=== PATIENT | male | born 1950 | race Caucasian/White ===

== ENCOUNTER → 2017-10-30 | Outpatient (CLI) | payer MEDICARE, OTHER ==
[~2017-10-30] MED LIST: ASPI81CH; ASPI81CH PO; Amox Tr-K Clv1 EAC2 PO; COQ10-VIT E 101 EACH PO; Cleocin HCl150 MG PO; DULO30; DULOXETINE HCL30 MG; FLAX SEED OIL1000 MG; Flagyl500 MG PO; MULVITMIND PO; Mobic15 MG PO; NEBI5; OXYACE7.5T PO; OXYC1TAB11; PROBIOTIC1 EAC1; PROM25 PO; Pantoprazole So40 MG PO; RXOXYACE PO; TAMS.4ER PO; TOCO1000; TRIHYD253A; Triamterene W/1 EACH; VITAMIN D-32000 UNI1 PO; ZOLP10; Zofran4 MG PO; Zolpidem Tartra10 MG
== END | disposition home or self-care (01) ==
LOC: EDSTATUS 10:32 → LAB SHORT 13:42 → PLD 13:42
DX: D22.5 Melanocytic nevi of trunk (principal)
CPT/HCPCS: 88305

== ENCOUNTER 2019-06-24 10:04 | Day surgery (SDC) | payer MEDICARE, OTHER ==
[2019-06-24 12:31] LABS: Body Fluid Crystals NEG (NEGATIVE)
[2019-06-24 12:42] LABS: RBC Count, Synovial Fluid 20000 /mm3 (0-0); WBC Count, Synovial Fluid 240 /mm3 (0-180)
[2019-06-24 13:36] LABS: Lymphs, Synovial Fluid 34 % (0-15); Monocytes/Macrophages, Synovia 23 % (0-65); Neutrophils, Synovial Fluid 43 % (0-24)
[2019-06-24 13:37] LABS: Appearance, Synovial Fluid Hazy (Clear); Color, Synovial Fluid Red (None-P Yel)
== END 2019-06-24 23:58 | disposition home or self-care (01) ==
LOC: RAD 10:04
PROVIDERS: Physician Assistant Surgical
DX: M70.61 Trochanteric bursitis, right hip (principal); M16.11 Unilateral primary osteoarthritis, right hip
CPT/HCPCS: 20610; 77002; 87070; 87075; 87205; 89051; 89060; Q9967